=== PATIENT | female | born 1970 | race Caucasian/White ===

== ENCOUNTER 2019-05-01 12:58 | Emergency (ER) | payer SELFPAY ==
[~2019-05-01] VITALS: Ht 172.7 cm; Wt 75.5 kg
[2019-05-01] MEDS ORDERED: NS 1,000 ML IV SCH (13:27)
[2019-05-01 14:26] LABS: VENOUS BASE EXCESS -3.4 (-2.0-2.0); VENOUS O2 SATURATION 81.3 % (60.0-80.0); VENOUS PARTIAL PRESSURE CO2 46.6 mmHg (38.0-50.0); VENOUS PARTIAL PRESSURE O2 49.4 mmHg (30.0-50.0); VENOUS PH 7.312 UNITS (7.330-7.430); VENOUS STANDARD HCO3 21.3 MEQ/L; VENOUS TOTAL CO2 24.5 MEQ/L (24.0-28.0)
[2019-05-01 14:46] LABS: BASO % 0.5 % (0.0-1.0); EOS # 0.4 10^3/uL (0.0-0.50); EOS % 4.2 % (0.0-3.0); HEMATOCRIT 42.8 % (36.0-47.0); HEMOGLOBIN 13.5 g/dl (12.0-15.5); LYMPH # 1.7 10^3/uL (1.5-4.5); LYMPH % 20.2 % (24.0-44.0); MEAN CORPUSCULAR HEMOGLOBIN 28.4 pg (27.0-33.0); MEAN CORPUSCULAR HGB CONC 31.5 g/dl (32.0-36.5); MEAN CORPUSCULAR VOLUME 90.1 fl (80.0-96.0); MONO # 0.4 10^3/uL (0.0-0.8); MONO % 4.2 % (0.0-5.0); NEUTROPHILS % 70.5 % (36.0-66.0); PLATELET COUNT, AUTOMATED 279 10^3/uL (150-450); RED BLOOD COUNT 4.75 10^6/uL (4.00-5.40); WHITE BLOOD COUNT 8.4 10^3/uL (4.0-10.0)
--- NOTE | 2019-05-01 15:02 | REP ---
CT HEAD WITHOUT CONTRAST: HISTORY: Altered mental status. There is no intraparenchymal hemorrhage, mass, or midline shift. The ventricular system is normal in appearance. There is no extracerebral collection. The visualized sinuses are clear. IMPRESSION: There is no intracranial lesion. Electronically Signed by Barrie Quintanilla MD 05/01/2019 06:07 P
--- NOTE | 2019-05-01 15:29 | REP ---
CHEST, SINGLE VIEW: Single AP view of the chest is performed. There is poor ventilation with crowded lung markings bilaterally. Cardiac silhouette appears magnified. Mediastinal silhouette is unremarkable. IMPRESSION: No acute infiltrate. Electronically Signed by Rajan Gary MD 05/02/2019 07:50 A
[2019-05-01 15:52] LABS: ACETAMINOPHEN LEVEL < 2.0 UG/ML (10.0-30.0); ALBUMIN 3.6 GM/DL (3.2-5.2); ALT/SGPT 32 U/L (12-78); BILIRUBIN,DIRECT < 0.1 MG/DL (0.0-0.2); BILIRUBIN,TOTAL 0.2 MG/DL (0.2-1.0); BLOOD UREA NITROGEN 10 MG/DL (7-18); CARBON DIOXIDE LEVEL 23 MEQ/L (21-32); CHLORIDE LEVEL 111 MEQ/L (98-107); CK-MB VALUE MASS 5.2 NG/ML (<3.6); CPK CREATINE PHOSPHOKINASE 170 U/L (26-192); CREATININE FOR GFR 0.69 MG/DL (0.55-1.30); ETHYL ALCOHOL (ETHANOL) < 0.003 % (0.000-0.010); GLOMERULAR FILTRATION RATE > 60.0 (>58); GLUCOSE, FASTING 95 MG/DL (70-100); MB/CK RELATIVE INDEX 3.06 (< OR =4); SALICYLATE LEVEL < 1.7 MG/DL (5.0-30.0); SODIUM LEVEL 142 MEQ/L (136-145); TOTAL PROTEIN 7.1 GM/DL (6.4-8.2); TROPONIN I 0.02 NG/ML (< 0.10)
[2019-05-01 16:30] VITALS: BP 114/63
[2019-05-01] MEDS ORDERED: IBUP-1764 PO (21:39)
[2019-05-01] MEDS ORDERED: C 50TAB PO (21:39)
[2019-05-01] MEDS ORDERED: MILK500C PO (21:39)
[2019-05-01] MEDS ORDERED: FISH1000 PO (21:39)
[2019-05-01] MEDS ORDERED: VITA200021 PO (21:39)
--- NOTE | 2019-05-01 21:45 | ECGEPIP ---
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
== END 2019-05-01 17:02 | disposition home or self-care (01) ==
LOC: M ED 12:58 → EDBD 12:58 → M ED 17:02
DX: G40.909 Epilepsy, unspecified, not intractable, without status epilepticus (principal); Z79.899 Other long term (current) drug therapy
CPT/HCPCS: 36415; 70450; 71045; 80048; 80076; 82550; 82553; 82803; 83605; 84443; 84484; 85025; 93005; 93041; 99285; G0480

== ENCOUNTER 2019-05-01 19:40 | Observation (INO) | payer SELFPAY ==
[~2019-05-01] VITALS: Ht 172.7 cm; Wt 78.8 kg
[2019-05-01 20:51] LABS: BASO # 0.1 10^3/uL (0.0-0.2); BASO % 0.6 % (0.0-1.0); EOS # 0.2 10^3/uL (0.0-0.50); HEMATOCRIT 41.5 % (36.0-47.0); HEMOGLOBIN 13.3 g/dl (12.0-15.5); LYMPH # 2.1 10^3/uL (1.5-4.5); LYMPH % 26.8 % (24.0-44.0); MEAN CORPUSCULAR HEMOGLOBIN 28.5 pg (27.0-33.0); MEAN CORPUSCULAR VOLUME 88.9 fl (80.0-96.0); MONO # 0.6 10^3/uL (0.0-0.8); MONO % 7.1 % (0.0-5.0); NEUTROPHILS % 63.2 % (36.0-66.0); PLATELET COUNT, AUTOMATED 305 10^3/uL (150-450); RED BLOOD COUNT 4.67 10^6/uL (4.00-5.40); WHITE BLOOD COUNT 7.9 10^3/uL (4.0-10.0)
[2019-05-01] MEDS ORDERED: ACETAMINOPHEN TAB 650MG DOSE (2X325MG) PO ONE (21:15)
[2019-05-01 21:22] LABS: ALBUMIN 3.7 GM/DL (3.2-5.2); ALT/SGPT 29 U/L (12-78); BILIRUBIN,DIRECT < 0.1 MG/DL (0.0-0.2); BILIRUBIN,TOTAL 0.3 MG/DL (0.2-1.0); BLOOD UREA NITROGEN 9 MG/DL (7-18); CALCIUM LEVEL 9.2 MG/DL (8.5-10.1); CARBON DIOXIDE LEVEL 25 MEQ/L (21-32); CHLORIDE LEVEL 112 MEQ/L (98-107); CREATININE FOR GFR 0.83 MG/DL (0.55-1.30); GLOMERULAR FILTRATION RATE > 60.0 (>58); GLUCOSE, FASTING 95 MG/DL (70-100); MAGNESIUM LEVEL 2.3 MG/DL (1.8-2.4); PHOSPHORUS LEVEL 2.1 MG/DL (2.5-4.9); POTASSIUM SERUM 3.7 MEQ/L (3.5-5.1); SODIUM LEVEL 144 MEQ/L (136-145); TOTAL PROTEIN 7.2 GM/DL (6.4-8.2)
[2019-05-01] MEDS ORDERED: IBUP-1764 PO (21:39)
[2019-05-01] MEDS ORDERED: MILK500C PO (21:39)
[2019-05-01] MEDS ORDERED: VITA200021 PO (21:39)
[2019-05-01] MEDS ORDERED: FISH1000 PO (21:39)
[2019-05-01] MEDS ORDERED: C 50TAB PO (21:39)
[2019-05-01] MEDS ORDERED: levETIRAcetam INJection 750 MG in D5W 100 ML IV ONE (21:45)
--- NOTE | 2019-05-01 21:52 | HPEPDOC ---
[facility] Medical History & Physical Date of Admission May 01, 2019 Date of Service: May 01, 2019 Other Provider per EMR no PCP Attending Physician: JUDE FLOWERS MD History and Physical Time of service 11 PM CHIEF COMPLAINT: Seizure HISTORY OF PRESENT ILLNESS: This Cornelio is a 48-year-old female with no past medical history who presented to the ED earlier on today after having an episode where she she felt like her body stiffened her eyes rolled back and her body was shaking. This episode lasted for about 30 seconds. Per discussion with the ED attending she was evaluated, the blood work and CT of the head were unremarkable, therefore she was sent back home, but returned shortly thereafter because she had another seizure. Dr. Man was consulted and he recommended starting the patient on Keppra 750 mg twice a day. The only other associated symptom the patient reported was headache shortly after the second seizure. She denies having seizures in the past, denies feeling unwell lately, denies having blurry vision, denies having episodes of dizziness, denies having fevers, chills, nausea, vomiting, diarrhea, chest pain, dyspnea, leg swelling, or any other acute illness. She reports sleeping well and denies drinking alcohol or using any recreational drugs. REVIEW OF SYSTEMS: Point review of systems negative except as listed in HPI PAST MEDICAL /SURGICAL HISTORY: 1 Status post tonsillectomy 2 Status post cholecystectomy SOCIAL HISTORY: Denies tobacco use. Denies alcohol use. Denies recreational drug use FAMILY HISTORY: Daughter has a history of seizures ALLERGIES: Please see below. HOME MEDICATIONS: Please see below. PHYSICAL EXAMINATION: VITAL SIGNS: Temperature 98.5, respiratory rate 20, pulse 71, blood pressure 136/68, pulse oximetry 97% on room air GENERAL APPEARANCE: Well-nourished, well-developed, appears slightly anxious, does not appear toxic HEENT: Normocephalic, atraumatic, mucous numbers moist and pink CARDIOVASCULAR: Regular rate and rhythm, no murmurs, rubs or gallops, radial pulses intact, no lower extremity edema LUNGS: There is no cough, there is no use of accessory muscles, the lungs are clear to auscultation bilaterally on room air ABDOMEN: Bowel sounds are hypoactive, the abdomen is soft and nontender. Palpation MUSCULOSKELETAL: Range of motion is intact 4 extremities NEUROLOGICAL: Numerous 2-12 are grossly intact, speech is not dysarthric, strength is 5 out of 5 in all extremities PSYCHIATRIC: Patient is alert and oriented to person, place and time, she is able to understand and follow commands LABORATORY DATA: CBC is unremarkable. The chemistries unremarkable for a phosphorus of 2.1 Tox screen is unremarkable. UA is positive leukocyte esterase and WBCs. The test is negative IMAGING: Chest x-ray is unremarkable. CT of the head without contrast was unremarkable EKG: " SINUS RHYTHM POSSIBLE LEFT ATRIAL ENLARGEMENT NSTTW ABNORMALITIES SIMILAR TO PRIOR ON SAME DATE" MICROBIOLOGY: Please see below. ASSESSMENT: Ms Andrew is a 48, total female, no past medical history who will be admitted for evaluation of new onset seizures PLAN: 1. New Onset Seizures The glucose, calcium, and magnesium are within normal limits The mildly elevated lactic acid is likely 2/2 the seizure Plan: admit to PCU/ fall precautions/ seizure precautions/ frequent neuro checks / follow-up with neurology in the morning /follow-up EEG and MRI of the brain w contrast to r/o mass / c/w Keppra 750mg BID 2. Hypophosphatemia Plan repeat phosphorus and follow up labs in te morning 3. Abnormal UA. The patient denied having abdominal pain, dysuria, or change in the color or smell of urine. Plan: Will not treat asymptomatic UTI in non patient 4.Mild MOHAMUD Plan: Acetaminophen PRN DVT prophylaxis with SCDs. Disposition pending clinical course Vital Signs Vital Signs Date Time Temp Pulse Resp B/P (MAP) Pulse Ox O2 Delivery O2 Flow Rate FiO2 05/01/19 21:30 62 122/67 (85) 98 05/01/19 19:58 98.5 20 Room Air Laboratory Data Labs 24H Laboratory Tests 2 05/01/19 20:45: Immature Granulocyte % (Auto) 0.3, White Blood Count 7.9, Red Blood Count 4.67, Hemoglobin 13.3, Hematocrit 41.5, Mean Corpuscular Volume 88.9, Mean Corpuscular Hemoglobin 28.5, Mean Corpuscular Hemoglobin Concent 32.0, Red Cell Distribution Width 16.3H, Platelet Count 305, Neutrophils (%) (Auto) 63.2, Lymphocytes (%) (Auto) 26.8, Monocytes (%) (Auto) 7.1H, Eosinophils (%) (Auto) 2.0, Basophils (%) (Auto) 0.6, Neutrophils # (Auto) 5.0, Lymphocytes # (Auto) 2.1, Monocytes # (Auto) 0.6, Eosinophils # (Auto) 0.2, Basophils # (Auto) 0.1, Nucleated Red Blood Cells % (auto) 0.0, Anion Gap 7L, Glomerular Filtration Rate > 60.0, Calcium Level 9.2, Phosphorus Level 2.1L, Magnesium Level 2.3, Aspartate Amino Transf (AST/SGOT) 20, Alanine Aminotransferase (ALT/SGPT) 29, Alkaline Phosphatase 66, Total Bilirubin 0.3, Direct Bilirubin < 0.1, Total Protein 7.2, Albumin 3.7, Albumin/Globulin Ratio 1.06 CBC/BMP Laboratory Tests 05/01/19 20:45 Red Blood Count 4.67, Mean Corpuscular Volume 88.9, Mean Corpuscular Hemoglobin 28.5, Mean Corpuscular Hemoglobin Concent 32.0, Red Cell Distribution Width 16.3 H, Neutrophils (%) (Auto) 63.2, Lymphocytes (%) (Auto) 26.8, Monocytes (%) (Auto) 7.1 H, Eosinophils (%) (Auto) 2.0, Basophils (%) (Auto) 0.6, Neutrophils # (Auto) 5.0, Lymphocytes # (Auto) 2.1, Monocytes # (Auto) 0.6, Eosinophils # (Auto) 0.2, Basophils # (Auto) 0.1 Home Medications Scheduled Ascorbic Acid (Vitamin C) 500 Mg Tablet, 500 MG PO DAILY Cholecalciferol (Vitamin D3) (Vitamin D3) 2,000 Unit Capsule, 2,000 UNIT PO DAILY Milk Thistle (Milk Thistle) 500 Mg Capsule, [address]-3 Fatty Acids/Fish Oil (Fish Oil 1,000 mg Capsule) 1 Each Capsule, 1,000 MG PO DAILY Scheduled PRN Ibuprofen (Ibuprofen) 200 Mg Tablet, 400 MG PO Q6H PRN for HEADACHE OR PAIN Allergies Coded Allergies: Sulfa (Sulfonamide Antibiotics) (Verified Allergy, Intermediate, RASH, 05/01/19) A-FIB/CHADSVASC A-FIB History Current/History of A-Fib/PAF?: No Current PO Anticoag Therapy: No JUDE FLOWERS MD May 01, 2019 21:52
--- NOTE | 2019-05-01 21:54 | ECGEPIP ---
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
[2019-05-01 22:12] LABS: URINE PREG TEST NEGATIVE (NEGATIVE)
[2019-05-01 22:25] LABS: AMPHETAMINES LEVEL URINE NEGATIVE (NEGATIVE); BARBITURATES URINE NEGATIVE (NEGATIVE); BENZODIAZEPINES URINE NEGATIVE (NEGATIVE); CANNABINOIDS URINE NEGATIVE (NEGATIVE); COCAINE METABOLITE URINE NEGATIVE (NEGATIVE); METHADONE URINE NEGATIVE (NEGATIVE); OPIATES URINE NEGATIVE (NEGATIVE); PHENCYCLIDINE URINE NEGATIVE (NEGATIVE)
[2019-05-01] MEDS: ENOXAPARIN 40 MG/0.4 ML SYRINGE (J1650) SC SCH (23:15)
[2019-05-02] MEDS ORDERED: ACETAMINOPHEN 650MG ER TAB (TYLENOL ARTHRITIS) PO PRN (00:45)
[2019-05-02] MEDS ORDERED: IBUPROFEN 400 MG TAB PO PRN (01:15)
[2019-05-02 06:51] LABS: BASO % 0.3 % (0.0-1.0); EOS # 0.1 10^3/uL (0.0-0.50); EOS % 0.8 % (0.0-3.0); HEMATOCRIT 38.7 % (36.0-47.0); HEMOGLOBIN 12.4 g/dl (12.0-15.5); LYMPH # 3.5 10^3/uL (1.5-4.5); LYMPH % 32.8 % (24.0-44.0); MEAN CORPUSCULAR HEMOGLOBIN 28.3 pg (27.0-33.0); MEAN CORPUSCULAR VOLUME 88.4 fl (80.0-96.0); MONO # 0.6 10^3/uL (0.0-0.8); MONO % 5.7 % (0.0-5.0); NEUTROPHILS # 6.4 10^3/uL (1.8-7.7); NEUTROPHILS % 59.9 % (36.0-66.0); PLATELET COUNT, AUTOMATED 289 10^3/uL (150-450); RED BLOOD COUNT 4.38 10^6/uL (4.00-5.40); WHITE BLOOD COUNT 10.7 10^3/uL (4.0-10.0)
[2019-05-02 07:09] LABS: BLOOD UREA NITROGEN 9 MG/DL (7-18); CALCIUM LEVEL 8.7 MG/DL (8.5-10.1); CARBON DIOXIDE LEVEL 23 MEQ/L (21-32); CHLORIDE LEVEL 111 MEQ/L (98-107); CREATININE FOR GFR 0.62 MG/DL (0.55-1.30); GLOMERULAR FILTRATION RATE > 60.0 (>58); GLUCOSE, FASTING 87 MG/DL (70-100); POTASSIUM SERUM 3.5 MEQ/L (3.5-5.1); SODIUM LEVEL 141 MEQ/L (136-145)
[2019-05-02] MEDS ORDERED: PROHANCE 279.3MG/ML 15ML VIAL (A9576) As Ordered ONE (10:12)
--- NOTE | 2019-05-02 10:58 | IPNPDOC ---
Date Seen The patient was seen on 05/02/19. Progress Note SUBJECTIVE: Patient is a 48-year-old white female with no pertinent past medical history who presented to the Emergency room because she had a seizure. Patient reports that she was shopping at [employer] with her . She remember dropping her phone while exiting the store and then waking up shaking on the ground surrounded by people. She states that prior to dropping her phone she felt her body stiffen up and reports that her eyes rolled back into her head. She was transported to the ER by ambulance where she had blood work and a head CT performed. All tests were unremarkable and after speaking to the ED attending she was sent home. Shortly after returning home she had another seizure and returned back to the Emergency department. Dr. Man was consulted and advised she be started on Keppra 750mg BID. Patient examined at bedside. She states that she feels fine but is tired. While speaking to the patient, I noted that she seemed groggy and would answer sparingly at times. Her right leg involuntarily jerked but she stated that she has not noticed feelings of restlessness. She denies dizziness, syncope, blurred vision, incontinence, headache, chest pain, numbness, or tingling. She continues to be afebrile but has an elevated WBC count. OBJECTIVE PHYSICAL EXAMINATION: VITAL SIGNS: Please see below. GENERAL: 48 year old female lying in bed. She is not in acute distress. Comf ortably speaking in full sentences. She was alert but seemed groggy. HEENT: NC AT, no facial drooping noted. Neck is supple. CARDIOVASCULAR: S2 heart sound was louder and more pronounced than S1. Irregular rhythm noted. RESPIRATORY: Lungs clear to auscultation bilaterally ABDOMINAL: soft, nontender to palpation, normal bowel sounds EXTREMITIES: 5/5 strength in all extremities, no rashes or cyanosis noted. 2/4 achilles reflex NEUROLOGICAL: CNII-XII intact. Noticed patient's right leg jerk while I was speaking to her. PSYCHOLOGICAL: Normal affect LABORATORY DATA, IMAGING STUDIES, MICROBIOLOGY: Please see below. 1. Brain MRI 05/02/19: There is no intracranial lesion. EKG: Sinus rhythm, low QRS voltage in precordial leads, minimal voltage criteria for LVH, consider normal variant. NSTTW abnormalities, no priors for comparison. DVT prophylaxis ordered?: Yes, Lovenox ASSESSMENT AND PLAN: Patient is a 48-year-old white female with no pertinent past medical history PROBLEMS: 1. Sudden onset seizure -Head CT and MRI negative for intracranial lesions or bleeds -On fall precautions and seizure precautions -hypophosphatemia on admission -Dr. Man consulted -c/w keppra bid -Lactic acid, glucose, calcium, BUN within normal limits -Patient scheduled for an EEG 2. Abnormal urinalysis -Patient is currently asymptomatic -not giving antibiotics -14+ WBC, 1+ leukocyte esterase -Negative test -Urine culture pending 3. Hypophosphatemia -phosphorus level 2.1 on 05/01/19 4. Leukocytosis -WBC 10.7 today DISPOSITION: Patient is stable and comfortable. She is scheduled for an EEG. Will continue being treated with Keppra [address] Man. We appreciate Dr. Man for input. I saw and evaluated the patient. I agree with the findings and plan of care as documented in the above note VS, I&O, 24H, Fishbone Vital Signs/I&O Vital Signs Date Time Temp Pulse Resp B/P (MAP) Pulse Ox O2 Delivery O2 Flow Rate FiO2 05/02/19 08:00 53 16 113/62 (79) 96 Room Air 05/01/19 19:58 98.5 Laboratory Data 24H LABS Laboratory Tests 2 05/01/19 20:45: Immature Granulocyte % (Auto) 0.3, White Blood Count 7.9, Red Blood Count 4.67, Hemoglobin 13.3, Hematocrit 41.5, Mean Corpuscular Volume 88.9, Mean Corpuscular Hemoglobin 28.5, Mean Corpuscular Hemoglobin Concent 32.0, Red Cell Distribution Width 16.3H, Platelet Count 305, Neutrophils (%) (Auto) 63.2, Lymphocytes (%) (Auto) 26.8, Monocytes (%) (Auto) 7.1H, Eosinophils (%) (Auto) 2.0, Basophils (%) (Auto) 0.6, Neutrophils # (Auto) 5.0, Lymphocytes # (Auto) 2.1, Monocytes # (Auto) 0.6, Eosinophils # (Auto) 0.2, Basophils # (Auto) 0.1, Nucleated Red Blood Cells % (auto) 0.0, Anion Gap 7L, Glomerular Filtration Rate > 60.0, Calcium Level 9.2, Phosphorus Level 2.1L, Magnesium Level 2.3, Aspartate Amino Transf (AST/SGOT) 20, Alanine Aminotransferase (ALT/SGPT) 29, Alkaline Phosphatase 66, Total Bilirubin 0.3, Direct Bilirubin < 0.1, Total Protein 7.2, Albumin 3.7, Albumin/Globulin Ratio 1.06 05/01/19 21:44: Urine Color YELLOW, Urine Appearance HAZY, Urine pH 6.0, Urine Specific [place] 1.012, Urine Protein NEGATIVE, Urine Glucose (UA) NEGATIVE, Urine Ketones NEGATIVE, Urine Blood NEGATIVE, Urine Nitrite NEGATIVE, Urine Bilirubin NEGATIVE, Urine Urobilinogen 0.2, Urine Leukocyte Esterase 1+H, Urine WBC (Auto) 14H, Urine RBC (Auto) 1, Urine Hyaline Casts (Auto) 0, Urine Bacteria (Auto) NEGATIVE, Urine Squamous Epithelial Cells 2, Urine Mucus (Auto) SMALL, Urine Sperm (Auto) , Urine Test NEGATIVE, Urine Amphetamines Screen NEGATIVE, Urine Benzodiazepines Screen NEGATIVE, Urine Opiates Screen NEGATIVE, Urine Methadone Screen NEGATIVE, Urine Barbiturates Screen NEGATIVE, Urine Phencyclidine Screen NEGATIVE, Urine Cocaine Metabolite Screen NEGATIVE, Urine Cannabinoids Screen NEGATIVE 05/02/19 06:29: Immature Granulocyte % (Auto) 0.5, White Blood Count 10.7H, Red Blood Count 4.38, Hemoglobin 12.4, Hematocrit 38.7, Mean Corpuscular Volume 88.4, Mean Corpuscular Hemoglobin 28.3, Mean Corpuscular Hemoglobin Concent 32.0, Red Cell Distribution Width 16.1H, Platelet Count 289, Neutrophils (%) (Auto) 59.9, Lymphocytes (%) (Auto) 32.8, Monocytes (%) (Auto) 5.7H, Eosinophils (%) (Auto) 0.8, Basophils (%) (Auto) 0.3, Neutrophils # (Auto) 6.4, Lymphocytes # (Auto) 3.5, Monocytes # (Auto) 0.6, Eosinophils # (Auto) 0.1, Basophils # (Auto) 0.0, Nucleated Red Blood Cells % (auto) 0.0, Anion Gap 7L, Glomerular Filtration Rate > 60.0, Calcium Level 8.7, Lactic Acid Level 0.8, Blood Urea Nitrogen 9, Creatinine 0.62, Sodium Level 141, Potassium Level 3.5, Chloride Level 111H, Carbon Dioxide Level 23 CBC/BMP Laboratory Tests 05/01/19 20:45 Red Blood Count 4.67, Mean Corpuscular Volume 88.9, Mean Corpuscular Hemoglobin 28.5, Mean Corpuscular Hemoglobin Concent 32.0, Red Cell Distribution Width 16.3 H, Neutrophils (%) (Auto) 63.2, Lymphocytes (%) (Auto) 26.8, Monocytes (%) (Auto) 7.1 H, Eosinophils (%) (Auto) 2.0, Basophils (%) (Auto) 0.6, Neutrophils # (Auto) 5.0, Lymphocytes # (Auto) 2.1, Monocytes # (Auto) 0.6, Eosinophils # (Auto) 0.2, Basophils # (Auto) 0.1 05/02/19 06:29 Red Blood Count 4.38, Mean Corpuscular Volume 88.4, Mean Corpuscular Hemoglobin 28.3, Mean Corpuscular Hemoglobin Concent 32.0, Red Cell Distribution Width 16.1 H, Neutrophils (%) (Auto) 59.9, Lymphocytes (%) (Auto) 32.8, Monocytes (%) (Auto) 5.7 H, Eosinophils (%) (Auto) 0.8, Basophils (%) (Auto) 0.3, Neutrophils # (Auto) 6.4, Lymphocytes # (Auto) 3.5, Monocytes # (Auto) 0.6, Eosinophils # (Auto) 0.1, Basophils # (Auto) 0.0, Calcium Level 8.7 Microbiology Microbiology 05/01/19 Urine Culture, Received Pending [facility] [place]-[facility] May 02, 2019 10:58 MELI CARNEY MD May 05, 2019 14:49
[2019-05-02] MEDS: levETIRAcetam 250MG TABLET (KEPPRA) PO SCH ×2 (11:21→21:46)
--- NOTE | 2019-05-02 11:50 | REP ---
MR BRAIN WITH AND WITHOUT CONTRAST: HISTORY: Seizure. CONTRAST: ProHance 50 mL. COMPARISON: __CT 05/01/2019 There are no areas of abnormal signal intensity in the brain. There is no intraparenchymal hemorrhage, infarct, mass or midline shift. There is no abnormal enhancement. The ventricular system is normal in appearance. There is no extracerebral collection. The sinuses are clear. IMPRESSION: There is no intracranial lesion. Electronically Signed by Barrie Quintanilla MD 05/02/2019 12:25 P
[2019-05-02 16:00] VITALS: BP 118/74
[2019-05-02 20:00] VITALS: BP 130/70
[2019-05-02] MEDS: ENOXAPARIN 40 MG/0.4 ML SYRINGE (J1650) SC SCH (21:46)
[2019-05-02 23:59] VITALS: BP 137/60
[2019-05-03 04:00] VITALS: BP 142/63
[2019-05-03 07:16] LABS: HEMATOCRIT 41.1 % (36.0-47.0); HEMOGLOBIN 13.2 g/dl (12.0-15.5); MEAN CORPUSCULAR HEMOGLOBIN 28.6 pg (27.0-33.0); MEAN CORPUSCULAR HGB CONC 32.1 g/dl (32.0-36.5); MEAN CORPUSCULAR VOLUME 89.2 fl (80.0-96.0); PLATELET COUNT, AUTOMATED 287 10^3/uL (150-450); RED BLOOD COUNT 4.61 10^6/uL (4.00-5.40); WHITE BLOOD COUNT 7.4 10^3/uL (4.0-10.0)
[2019-05-03 07:39] LABS: BLOOD UREA NITROGEN 11 MG/DL (7-18); CALCIUM LEVEL 9.1 MG/DL (8.5-10.1); CARBON DIOXIDE LEVEL 24 MEQ/L (21-32); CHLORIDE LEVEL 110 MEQ/L (98-107); CREATININE FOR GFR 0.71 MG/DL (0.55-1.30); GLOMERULAR FILTRATION RATE > 60.0 (>58); GLUCOSE, FASTING 97 MG/DL (70-100); POTASSIUM SERUM 3.8 MEQ/L (3.5-5.1); SODIUM LEVEL 139 MEQ/L (136-145)
[2019-05-03 08:00] VITALS: BP 130/60
[2019-05-03] MEDS: levETIRAcetam 250MG TABLET (KEPPRA) PO SCH (08:48)
[2019-05-03 10:15] LABS: PHOSPHORUS LEVEL 3.2 MG/DL (2.5-4.9)
--- NOTE | 2019-05-03 10:52 | IPNPDOC ---
Date Seen The patient was seen on 05/03/19. Progress Note SUBJECTIVE: Patient is a 48-year-old white female with no pertinent past medical history who presented to the Emergency room because she had a seizure. Patient reports that she was shopping at [employer] with her . She remember dropping her phone while exiting the store and then waking up shaking on the ground surrounded by people. She states that prior to dropping her phone she felt her body stiffen up and reports that her eyes rolled back into her head. She was transported to the ER by ambulance where she had blood work and a head CT performed. All tests were unremarkable and after speaking to the ED attending she was sent home. Shortly after returning home she had another seizure and returned back to the Emergency department. Dr. Man was consulted and advised she be started on Keppra 750mg BID. Patient was examined at bedside. She states that she feels fine today and has not had any additional seizure like activity. While I was speaking to the patient, I noticed noticed her left leg jerk. She is able to answer questions appropriately but there is lag time between my question and her answer. These signs may be indicative of dystonia. She denies taking any psychiatric medi cations or illicit drugs. Neurology has been consulted; she is scheduled for an EEG today. Patient denies fever, chills, dizziness, syncope, chest pain, shortness of breath, blurred vision, or symptoms of a UTI. OBJECTIVE PHYSICAL EXAMINATION: VITAL SIGNS: Please see below. GENERAL: 48 year old female lying in bed. She is not in acute distress. She was alert but seemed groggy. HEENT: NC AT, no facial drooping noted. Neck is supple. CARDIOVASCULAR: S2 heart sound was louder and more pronounced than S1. RESPIRATORY: Lungs clear to auscultation bilaterally ABDOMINAL: soft, nontender to palpation, normal bowel sounds, no suprapubic tenderness EXTREMITIES: 5/5 strength in all extremities, no rashes or cyanosis noted. 2/4 achilles reflex NEUROLOGICAL: CNII-XII intact. PSYCHOLOGICAL: Normal affect, lag time between patient answers noted. LABORATORY DATA, IMAGING STUDIES, MICROBIOLOGY: Please see below. 1. Brain MRI 05/02/19: There is no intracranial lesion. EKG: Sinus rhythm, low QRS voltage in precordial leads, minimal voltage criteria for LVH, consider normal variant. NSTTW abnormalities, no priors for comparison. DVT prophylaxis ordered?: Yes, lovenox ASSESSMENT AND PLAN: Patient is a 48-year-old white female with no pertinent past medical history PROBLEMS: 1. Sudden onset seizure -Head CT and MRI negative for intracranial lesions or bleeds -On fall precautions and seizure precautions -hypophosphatemia on admission, repeat levels within normal limits -Dr. Man consulted -c/w keppra bid -Lactic acid, glucose, calcium, BUN within normal limits -Patient scheduled for an EEG 2. Abnormal urinalysis -Patient is currently asymptomatic -not giving antibiotics -14+ WBC, 1+ leukocyte esterase -Negative test -Urine culture had no growth 3. Hypophosphatemia -low phosphorus on admission -phosphorus level today is within normal limits. 4. Leukocytosis -Resolved -WBC count within normal limits DISPOSITION: Patient is stable and comfortable. She is scheduled for an EEG 05/03/19. Will continue being treated with Keppra [address] Man. We appreciate Dr. Man for input. Potential discharge tomorrow. Addendum: Patient had EEG and was seen by Dr. Man. Advised to follow up with neurology in 2 weeks and continue keppra outpatient. she unable to drive for 6 months as well. Discharge Date: 05/03/2019 I saw and evaluated the patient. I agree with the findings and plan of care as documented in the above note VS, I&O, 24H, Fishbone Vital Signs/I&O Vital Signs Date Time Temp Pulse Resp B/P (MAP) Pulse Ox O2 Delivery O2 Flow Rate FiO2 05/03/19 08:00 97.5 51 18 130/60 (83) 95 05/02/19 11:09 Room Air I&O- Last 24 Hours up to 6 AM 05/03/19 06:00 Intake Total 420 ml Output Total 0 ml Balance 420 ml Laboratory Data 24H LABS Laboratory Tests 2 05/03/19 06:47: Nucleated Red Blood Cells % (auto) 0.0, Anion Gap 5L, Glomerular Filtration Rate > 60.0, Blood Urea Nitrogen 11, Creatinine 0.71, Sodium Level 139, Potassium Level 3.8, Chloride Level 110H, Carbon Dioxide Level 24, Calcium Level 9.1, Phosphorus Level 3.2# CBC/BMP Laboratory Tests 05/03/19 06:47 Red Blood Count 4.61, Mean Corpuscular Volume 89.2, Mean Corpuscular Hemoglobin 28.6, Mean Corpuscular Hemoglobin Concent 32.1, Red Cell Distribution Width 16.2 H, Calcium Level 9.1 Microbiology Microbiology 05/01/19 Urine Culture - Final, Complete [facility] May 03, 2019 10:52 SRINIVAS HIRSCH DO May 03, 2019 19:31 MELI CARNEY MD May 05, 2019 14:58
[2019-05-03 12:00] VITALS: BP 125/62
[2019-05-03 16:00] VITALS: BP 138/81
[2019-05-03] MEDS ORDERED: KEPP250T5 PO (17:25)
--- NOTE | 2019-05-04 14:42 | CR ---
DATE OF CONSULTATION: 05/03/2019 REASON FOR CONSULTATION: Seizures. HISTORY OF PRESENT ILLNESS: Tamiko Grimes is a 48-year-old woman who was admitted at [facility] due to two seizures. Patient works at [employer] where her also works. Patient was with her in [employer] when she had no warning and lost consciousness. She fell down, stiffened up, eyes rolled back and her body was shaking. It lasted anywhere between 30-90 seconds. She woke up when [facility] Medical Services (EMS) were putting her in a stretcher. She was brought to [facility] and was evaluated, which was unremarkable and she was discharged home. When she got home, she had another episode. She started staring off into space and her eyes rolled back. She again woke up on a stretcher when EMS was bringing her to the hospital. There was no tongue biting or urinary incontinence in these episodes. She is not sure if she was shaking in the second episode. The patient's daughter has history of [place] seizures. 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 She denies any febrile seizures, head injuries in past or meningitis. She was brought back to emergency department and we started her on Keppra 750 mg by mouth twice a day. She did have a headache on the day after she had seizure. She denies any neck pain, back pain, dysphagia, dysarthria, diplopia, urinary incontinence. PAST MEDICAL HISTORY: 1. Cholecystectomy. 2. Tonsillectomy. SOCIAL HISTORY: She denies smoking, alcohol or illicit drugs. FAMILY HISTORY: Daughter has seizures. HOME MEDICATIONS: - vitamin D3 - vitamin C - milk thistle 5 mg by mouth daily - [place]-3 fatty acids 1000 mg by mouth daily - ibuprofen 400 mg by mouth twice a day as needed ALLERGIES: SULFA. REVIEW OF SYSTEMS: All systems were reviewed and found to be noncontributory except as mentioned in history of present illness. PHYSICAL EXAMINATION: Temperature 98, pulse 73, respiratory rate 16, blood pressure 125/62, 98% saturation on room air. Heart: Regular rate rhythm. Lungs: Clear to auscultation. Abdomen: Soft, nontender, nondistended. No pedal edema. No musculoskeletal abnormalities. No rash. No signs of meningeal irritation. The patient is awake, alert, oriented to place, person and time. Normal speech, comprehension, and repetition. Extraoral muscles are intact. No facial weakness. Tongue and uvula are midline. 5/5 strength in all upper extremities. Deep tendon flexes 2+ throughout. Normal sensation throughout. No dysmetria, ataxia on gait. She is able to do tandem walking. Recent and distant memory is intact. Visual fregoso are full to confrontation. No nystagmus. Pupils are 6 mm bilaterally reactive to light. DIAGNOSTIC STUDIES: MRI scan of brain was normal. Her BMP and CBC were unremarkable. Her blood WBCs were 10.7 but decreased to 7.4 from admission to today. Urinalysis showed WBCs and positive leukocyte esterase but she denies any symptoms. ASSESSMENT: Suspected complex partial and generalized tonic-clonic seizures. PLAN: 1. Keppra 750 mg by mouth twice a day. 2. We await results of her electroencephalogram (EEG) which was already performed. 3. She is aware she should not be driving. [facility] rules and regulations were discussed. She should not swim alone or climb ladder and follow other seizure precautions as well. 4. Follow with us in 2-3 weeks after hospital discharge. She will be off work next week.
--- NOTE | 2019-05-05 08:41 | EEG ---
DATE OF PROCEDURE: 05/03/2019 REFERRING PHYSICIAN: Merary Hartley MD DIAGNOSIS: Seizures. EEG #: [id number] HISTORY The patient is a 48-year-old woman who was admitted at [facility] after a generalized tonic-clonic and another complex partial seizure. She is currently on Keppra. This EEG was done to rule out epileptic potential. TECHNICAL DESCRIPTION This digital EEG was recorded by 21 scalp, ear and two EKG electrodes and was reviewed in bipolar and referential montages following reformatting in 10-20 international electrode placement system. INTERPRETATION The patient was noted to be in awake and drowsy states during this EEG. Resting awake background rhythm consisted of well-formed posterior dominant rhythm with anterior/posterior gradient comprising of 11 Hz alpha activity measuring 15-70 microvolts in amplitude, which was symmetric and reactive to eye opening. Anteriorly low voltage and mixed frequency activity was noted. Attenuation of posterior dominant rhythm was seen during transition into drowsiness. Stage I and II sleep were reviewed and was symmetric bilaterally. Hyperventilation and photic stimulation remained unremarkable. They were two clear separate occurrences of right frontal spike and slow wave activity with spread to right temporal and parietal head region with subtle spread to left hemisphere. Maximum electrode negativity was in right frontal head region. No relevant clinical activity was noted. EKG revealed normal sinus rhythm. CONCLUSION This EEG in awake, drowsy states, stage I and II sleep is abnormal due to presence of right frontal epileptiform discharges with spread to right temporal parietal head region and subtle spread to left hemisphere consistent with focal cortical structural or functional abnormality with epileptic potential. Clinical correlation is recommended.
== END 2019-05-03 19:00 | disposition home or self-care (01) ==
LOC: M ED 19:40 → M ED INP 19:41 → M PCU 05-02 15:38
PROVIDERS: ADMIT Internal Medicine; ATTEND Internal Medicine
DX: R56.9 Unspecified convulsions (principal); E83.39 Other disorders of phosphorus metabolism; R82.998 Other abnormal findings in urine; R51 Headache; Z79.899 Other long term (current) drug therapy; Z88.2 Allergy status to sulfonamides; D72.829 Elevated white blood cell count, unspecified
CPT/HCPCS: 36415; 70553; 80048; 80076; 80307; 81001; 83605; 83735; 84100; 84703; 85025; 85027; 87086; 93005; 94760; 95819; 96372; 97161; 99285; A9576; J1650; J1953

== ENCOUNTER → 2019-11-08 | Outpatient (CLI) | payer OTHER ==
[~2019-11-08] MED LIST: C 50TAB PO; FISH1000 PO; IBUP-1764 PO; KEPP250T5 PO; MILK500C PO; VITA200021 PO
[2019-11-08 16:45] LABS: BASO # 0.1 10^3/uL (0.0-0.2); BASO % 0.7 % (0.0-1.0); EOS # 0.1 10^3/uL (0.0-0.5); EOS % 1.5 % (0.0-3.0); HEMATOCRIT 40.1 % (36.0-47.0); HEMOGLOBIN 12.4 g/dl (12.0-15.5); LYMPH % 34.5 % (24.0-44.0); MEAN CORPUSCULAR HEMOGLOBIN 28.6 pg (27.0-33.0); MEAN CORPUSCULAR HGB CONC 30.9 g/dl (32.0-36.5); MEAN CORPUSCULAR VOLUME 92.4 fl (80.0-96.0); MONO # 0.6 10^3/uL (0.0-0.8); MONO % 7.5 % (0.0-5.0); NEUTROPHILS # 4.8 10^3/uL (1.5-8.5); NEUTROPHILS % 55.3 % (36.0-66.0); PLATELET COUNT, AUTOMATED 314 10^3/uL (150-450); RED BLOOD COUNT 4.34 10^6/uL (4.00-5.40); WHITE BLOOD COUNT 8.6 10^3/uL (4.0-10.0)
[2019-11-08 17:18] LABS: ALBUMIN 3.8 GM/DL (3.2-5.2); ALT/SGPT 34 U/L (12-78); BILIRUBIN,TOTAL 0.3 MG/DL (0.2-1.0); BLOOD UREA NITROGEN 11 MG/DL (7-18); CALCIUM LEVEL 9.3 MG/DL (8.5-10.1); CARBON DIOXIDE LEVEL 30 MEQ/L (21-32); CHLORIDE LEVEL 107 MEQ/L (98-107); GLOMERULAR FILTRATION RATE > 60.0 (>58); GLUCOSE, FASTING 79 MG/DL (70-100); POTASSIUM SERUM 4.3 MEQ/L (3.5-5.1); SODIUM LEVEL 142 MEQ/L (136-145); TOTAL PROTEIN 7.1 GM/DL (6.4-8.2)
[2019-11-08 17:27] LABS: VITAMIN B12 LEVEL 500 PG/ML
[2019-11-08 17:35] LABS: FOLATE 8.4 NG/ML
== END ==
LOC: M WUC 14:55
PROVIDERS: ATTEND Psychiatry & Neurology Neurology
DX: R56.9 Unspecified convulsions (principal)

== ENCOUNTER → 2020-11-18 | Outpatient (CLI) | payer OTHER ==
[2020-11-18 15:31] LABS: BASO # 0.1 10^3/uL (0.0-0.2); BASO % 0.8 % (0.0-1.0); EOS # 0.2 10^3/uL (0.0-0.5); EOS % 2.8 % (0.0-3.0); HEMATOCRIT 43.6 % (36.0-47.0); HEMOGLOBIN 13.7 g/dl (12.0-15.5); LYMPH # 2.4 10^3/uL (1.5-5.0); LYMPH % 39.6 % (24.0-44.0); MEAN CORPUSCULAR HEMOGLOBIN 28.8 pg (27.0-33.0); MEAN CORPUSCULAR HGB CONC 31.4 g/dl (32.0-36.5); MEAN CORPUSCULAR VOLUME 91.6 fl (80.0-96.0); MONO # 0.5 10^3/uL (0.0-0.8); MONO % 8.4 % (2.0-8.0); NEUTROPHILS # 2.9 10^3/uL (1.5-8.5); NEUTROPHILS % 48.1 % (36.0-66.0); PLATELET COUNT, AUTOMATED 301 10^3/uL (150-450); RED BLOOD COUNT 4.76 10^6/uL (4.00-5.40)
[2020-11-18 15:53] LABS: ALBUMIN 4.1 GM/DL (3.2-5.2); ALT/SGPT 36 U/L (12-78); BILIRUBIN,TOTAL 0.4 MG/DL (0.2-1.0); BLOOD UREA NITROGEN 15 MG/DL (7-18); CALCIUM LEVEL 9.5 MG/DL (8.5-10.1); CARBON DIOXIDE LEVEL 27 MEQ/L (21-32); CHLORIDE LEVEL 107 MEQ/L (98-107); CREATININE FOR GFR 0.74 MG/DL (0.55-1.30); GLOMERULAR FILTRATION RATE > 60.0 (>51); GLUCOSE, FASTING 88 MG/DL (70-100); POTASSIUM SERUM 4.4 MEQ/L (3.5-5.1); SODIUM LEVEL 138 MEQ/L (136-145); TOTAL PROTEIN 7.2 GM/DL (6.4-8.2)
== END ==
LOC: M WUC 12:01
PROVIDERS: ATTEND Psychiatry & Neurology Neurology
DX: R56.9 Unspecified convulsions (principal)

== ENCOUNTER → 2021-11-17 | Outpatient (CLI) | payer OTHER ==
[2021-11-17 16:23] LABS: BASO # 0.1 10^3/uL (0.0-0.2); BASO % 1.1 % (0.0-1.0); EOS # 0.2 10^3/uL (0.0-0.5); EOS % 3.1 % (0.0-3.0); HEMATOCRIT 42.6 % (36.0-47.0); HEMOGLOBIN 13.4 g/dl (12.0-15.5); LYMPH # 2.9 10^3/uL (1.5-5.0); LYMPH % 39.3 % (24.0-44.0); MEAN CORPUSCULAR HEMOGLOBIN 29.7 pg (27.0-33.0); MEAN CORPUSCULAR HGB CONC 31.5 g/dl (32.0-36.5); MEAN CORPUSCULAR VOLUME 94.5 fl (80.0-96.0); MONO # 0.5 10^3/uL (0.0-0.8); MONO % 6.7 % (2.0-8.0); NEUTROPHILS # 3.7 10^3/uL (1.5-8.5); NEUTROPHILS % 49.4 % (36.0-66.0); PLATELET COUNT, AUTOMATED 339 10^3/uL (150-450); RED BLOOD COUNT 4.51 10^6/uL (4.00-5.40); WHITE BLOOD COUNT 7.4 10^3/uL (4.0-10.0)
[2021-11-17 16:40] LABS: ALT/SGPT 44 U/L (12-78); BILIRUBIN,TOTAL 0.3 MG/DL (0.2-1.0); BLOOD UREA NITROGEN 9 MG/DL (7-18); CALCIUM LEVEL 9.7 MG/DL (8.5-10.1); CARBON DIOXIDE LEVEL 31 MEQ/L (21-32); CHLORIDE LEVEL 109 MEQ/L (98-107); CREATININE FOR GFR 0.76 MG/DL (0.55-1.30); GLOMERULAR FILTRATION RATE > 60.0 (>51); GLUCOSE, FASTING 84 MG/DL (70-100); POTASSIUM SERUM 4.6 MEQ/L (3.5-5.1); SODIUM LEVEL 142 MEQ/L (136-145); TOTAL PROTEIN 7.3 GM/DL (6.4-8.2)
== END ==
LOC: M WUC 13:11
PROVIDERS: ATTEND Psychiatry & Neurology Neurology
DX: R56.9 Unspecified convulsions (principal)

== ENCOUNTER → 2022-11-15 | Outpatient (CLI) | payer OTHER ==
[2022-11-15 17:09] LABS: BASO # 0.1 10^3/uL (0.0-0.2); BASO % 0.8 % (0.0-1.0); EOS # 0.1 10^3/uL (0.0-0.5); EOS % 1.9 % (0.0-3.0); HEMATOCRIT 42.7 % (36.0-47.0); HEMOGLOBIN 13.4 g/dl (12.0-15.5); LYMPH # 3.1 10^3/uL (1.5-5.0); LYMPH % 42.4 % (24.0-44.0); MEAN CORPUSCULAR HEMOGLOBIN 30.4 pg (27.0-33.0); MEAN CORPUSCULAR HGB CONC 31.4 g/dl (32.0-36.5); MEAN CORPUSCULAR VOLUME 96.8 fl (80.0-96.0); MONO # 0.6 10^3/uL (0.0-0.8); NEUTROPHILS # 3.4 10^3/uL (1.5-8.5); NEUTROPHILS % 46.3 % (36.0-66.0); PLATELET COUNT, AUTOMATED 361 10^3/uL (150-450); RED BLOOD COUNT 4.41 10^6/uL (4.00-5.40); WHITE BLOOD COUNT 7.3 10^3/uL (4.0-10.0)
[2022-11-15 18:43] LABS: ALBUMIN 4.1 G/DL (3.2-5.2); ALKALINE PHOSPHATASE 62 U/L (46-116); ALT/SGPT 37 U/L (7.0-40); AST/SGOT 30 U/L (<34); BILIRUBIN,TOTAL 0.3 MG/DL (0.3-1.2); BLOOD UREA NITROGEN 11 MG/DL (9-23); CALCIUM LEVEL 9.6 MG/DL (8.5-10.1); CARBON DIOXIDE LEVEL 27 MMOL/L (20-31); CHLORIDE LEVEL 106 MMOL/L (98-107); FOLATE 11.24 NG/ML (>5.4); GLUCOSE, FASTING 81 MG/DL (60-100); POTASSIUM SERUM 4.5 MMOL/L (3.5-5.1); SODIUM LEVEL 140 MMOL/L (136-145); TOTAL 25(OH) VITAMIN D 19.4 NG/ML (20.0-100.0); TOTAL PROTEIN 7.1 G/DL (5.7-8.2); VITAMIN B12 LEVEL 1399 PG/ML (211-911)
[2022-11-15 20:06] LABS: CREATININE FOR GFR 0.68 MG/DL (0.55-1.30); GLOMERULAR FILTRATION RATE > 60.0 (>51)
== END ==
LOC: M WUC 11:18
PROVIDERS: ATTEND Psychiatry & Neurology Neurology
DX: R56.9 Unspecified convulsions (principal); E53.8 Deficiency of other specified B group vitamins; Z79.899 Other long term (current) drug therapy

== ENCOUNTER → 2023-11-15 | Outpatient (CLI) | payer OTHER ==
[2023-11-15 17:18] LABS: BASO # 0.1 10^3/uL (0.0-0.2); EOS # 0.2 10^3/uL (0.0-0.5); HEMATOCRIT 46.7 % (36.0-47.0); HEMOGLOBIN 14.8 g/dl (12.0-15.5); LYMPH # 3.7 10^3/uL (1.5-5.0); LYMPH % 43.5 % (24.0-44.0); MEAN CORPUSCULAR HEMOGLOBIN 30.1 pg (27.0-33.0); MEAN CORPUSCULAR HGB CONC 31.7 g/dl (32.0-36.5); MEAN CORPUSCULAR VOLUME 95.1 fl (80.0-96.0); MONO # 0.6 10^3/uL (0.0-0.8); MONO % 6.6 % (2.0-8.0); NEUTROPHILS % 46.4 % (36.0-66.0); PLATELET COUNT, AUTOMATED 329 10^3/uL (150-450); RED BLOOD COUNT 4.91 10^6/uL (4.00-5.40); WHITE BLOOD COUNT 8.6 10^3/uL (4.0-10.0)
[2023-11-15 17:37] LABS: ALBUMIN 4.2 G/DL (3.2-5.2); ALKALINE PHOSPHATASE 70 U/L (46-116); ALT/SGPT 36 U/L (7.0-40); AST/SGOT 23 U/L (<34); BILIRUBIN,TOTAL 0.3 MG/DL (0.3-1.2); BLOOD UREA NITROGEN 14 MG/DL (9-23); CARBON DIOXIDE LEVEL 29 MMOL/L (20-31); CHLORIDE LEVEL 106 MMOL/L (98-107); CREATININE FOR GFR 0.67 MG/DL (0.55-1.30); GLOMERULAR FILTRATION RATE > 60.0 (>51); GLUCOSE, FASTING 92 MG/DL (60-100); POTASSIUM SERUM 4.8 MMOL/L (3.5-5.1); SODIUM LEVEL 142 MMOL/L (136-145); TOTAL PROTEIN 7.4 G/DL (5.7-8.2)
== END ==
LOC: M WUC 14:21
PROVIDERS: ATTEND Psychiatry & Neurology Neurology
DX: R56.9 Unspecified convulsions (principal); Z79.899 Other long term (current) drug therapy